=== PATIENT | female | born 1995 | race Caucasian/White ===

== ENCOUNTER → 2017-03-01 | Outpatient (CLI) | payer BC, MEDICAID | LOC: M RAD 11:15 | DX: O26.843 Uterine size-date discrepancy, third trimester (principal); Z3A.33 33 weeks gestation of pregnancy | CPT/HCPCS: 76820 ==

== ENCOUNTER → 2017-03-14 | Outpatient (REF) | payer BC | LOC: M LAB REF 17:18 | DX: Z34.83 Encounter for supervision of other normal pregnancy, third trimester (principal) | CPT/HCPCS: 87081 ==

== ENCOUNTER 2017-03-17 12:26 | Emergency (ER) | payer BC, MEDICAID | END 2017-03-17 15:58 | disposition home or self-care (01) | LOC: M ED 12:26 | DX: R07.89 Other chest pain (principal); J45.909 Unspecified asthma, uncomplicated; Z86.14 Personal history of Methicillin resistant Staphylococcus aureus infection | CPT/HCPCS: 93005 ==

== ENCOUNTER 2017-04-06 07:50 | Inpatient (IN) | payer MEDICAID ==
[2017-04-06] MEDS ORDERED: LR 1,000 ML IV (08:55)
[2017-04-06] MEDS ORDERED: LACTATED RINGER'S 1000 ML IV (08:55)
[2017-04-06] MEDS: PRENATAL VITAMINS CHEWABLE TABLET PO (09:00)
[2017-04-06] MEDS ORDERED: NS 1,000 ML IV (09:30)
[2017-04-06 09:41] LABS: HEMATOCRIT 42.2 % (36.0-47.0); HEMOGLOBIN 14.3 g/dl (12.0-16.0); MEAN CORPUSCULAR HEMOGLOBIN 31.1 pg (27.0-33.0); MEAN CORPUSCULAR HGB CONC 33.9 g/dl (32.0-36.5); MEAN CORPUSCULAR VOLUME 91.7 fl (80.0-96.0); PLATELET COUNT, AUTOMATED 318 10^3/uL (150-450); RED CELL DISTRIBUTION WIDTH 12.6 % (11.5-14.5); WHITE BLOOD COUNT 12.8 10^3/uL (4.0-10.0)
[2017-04-06] MEDS ORDERED: D5W 1,000 ML IV (10:30)
[2017-04-06] MEDS: BICITRA 30ML SOLN UDC PO (11:04)
[2017-04-06] MEDS ORDERED: METOCLOPRAMIDE INJ 10MG/2ML VIAL (J2765) IV (11:15)
[2017-04-06] MEDS ORDERED: NALOXONE INJ 0.4 MG/1 ML VIAL (J2310) IV ×2 (11:15)
[2017-04-06] MEDS ORDERED: NALBUPHINE HCL 10 MG/ML AMP (J2300) IV (11:15)
[2017-04-06] MEDS ORDERED: ONDANSETRON 4MG/2ML VIAL (J2405) IV ×3 (11:15→13:45)
[2017-04-06 12:19] LABS: HBSAG L&D NEGATIVE (NEGATIVE)
[2017-04-06] MEDS: OXYTOCIN DRIP 30 UNITS in APPROPRIATE DILUENT 1 EA IV (13:06)
[2017-04-06] MEDS ORDERED: RHOGAM 300 MCG (1500 IU) INJ (J2790) IM (13:15)
[2017-04-06] MEDS ORDERED: PROMETHAZINE 25 MG TAB PO (13:15)
[2017-04-06] MEDS: KETOROLAC 30 MG/ML VIAL (J1885) IV ×2 (13:15→18:52)
[2017-04-06] MEDS ORDERED: MEASLES,MUMPS,RUBELLA VACCINE INJ (MMR-II) (90707) SC (13:15)
[2017-04-06] MEDS ORDERED: PERCOCET 5MG/325MG TAB PO (13:15)
[2017-04-06] MEDS ORDERED: fentaNYL 100 MCG/2 ML INJECTION (J3010) IV (13:45)
[2017-04-06 14:15] LABS: AMPHETAMINES URINE REFLEX NEGATIVE (NEGATIVE); BARBITURATES URINE REFLEX NEGATIVE (NEGATIVE); BENZODIAZEPINES URINE REFLEX NEGATIVE (NEGATIVE); COCAINE METABOLITE URINE REFLE NEGATIVE (NEGATIVE); METHADONE URINE REFLEX NEGATIVE (NEGATIVE); OPIATES URINE REFLEX NEGATIVE (NEGATIVE); PHENCYCLIDINE URINE REFLEX NEGATIVE (NEGATIVE)
[2017-04-06 14:17] LABS: CANNABINOIDS URINE REFLEX POSITIVE (NEGATIVE)
[2017-04-06] MEDS: DOCUSATE SODIUM 100 MG CAP PO (20:20)
[2017-04-06] MEDS: LR 1,000 ML IV ×2 (21:06→23:41)
[2017-04-07] MEDS: KETOROLAC 30 MG/ML VIAL (J1885) IV ×2 (01:35→07:31)
[2017-04-07] MEDS: LR 1,000 ML IV (04:10)
[2017-04-07 07:01] LABS: HEMATOCRIT 34.9 % (36.0-47.0); MEAN CORPUSCULAR HEMOGLOBIN 30.9 pg (27.0-33.0); MEAN CORPUSCULAR HGB CONC 33.2 g/dl (32.0-36.5); MEAN CORPUSCULAR VOLUME 92.8 fl (80.0-96.0); PLATELET COUNT, AUTOMATED 259 10^3/uL (150-450); RED BLOOD COUNT 3.76 10^6/uL (4.00-5.40); RED CELL DISTRIBUTION WIDTH 12.6 % (11.5-14.5)
[2017-04-07 07:15] LABS: HEMOGLOBIN 11.6 g/dl (12.0-16.0)
[2017-04-07] MEDS: PRENATAL VITAMINS CHEWABLE TABLET PO (08:54)
[2017-04-07] MEDS: DOCUSATE SODIUM 100 MG CAP PO ×2 (09:00→20:55)
[2017-04-07] MEDS: IBUPROFEN 800 MG TAB PO ×2 (15:15→23:15)
[2017-04-08] MEDS: PERCOCET 5MG/325MG TAB PO (01:06)
[2017-04-08] MEDS: IBUPROFEN 800 MG TAB PO (06:27)
[2017-04-08] MEDS: DOCUSATE SODIUM 100 MG CAP PO (09:07)
[2017-04-08] MEDS: PRENATAL VITAMINS CHEWABLE TABLET PO (09:07)
[2017-04-10 00:06] LABS: Cannabinoid Positive (.); GC Carboxy THC >300 ng/mL (Cutoff=10)
== END 2017-04-08 11:05 | disposition home or self-care (01) | DRG 540 ==
LOC: M LDI 07:50 → M OBS 14:46
PROVIDERS: Obstetrics & Gynecology
PROC: 10D00Z1 Extraction of Products of Conception, Low, Open Approach (ICD-10-PCS; principal; 2017-04-06 08:30)
DX: O34.211 Maternal care for low transverse scar from previous cesarean delivery (principal); Z68.43 Body mass index [BMI] 50.0-59.9, adult; E66.01 Morbid (severe) obesity due to excess calories; O99.214 Obesity complicating childbirth; Z37.0 Single live birth; Z3A.39 39 weeks gestation of pregnancy

== ENCOUNTER 2018-03-12 11:35 | Emergency (ER) | payer BC, MEDICAID ==
[~2018-03-12] VITALS: Ht 160 cm; Wt 131.8 kg
[~2018-03-12 11:35] MED LIST: COLA100C5 PO; IBUP80TA PO; OXYC1TAB23 PO; PRENTAB55 PO
[2018-03-12 12:29] LABS: INFLUENZA A AMPLIFICATION NEGATIVE (NEGATIVE); INFLUENZA B AMPLIFICATION NEGATIVE (NEGATIVE)
--- NOTE | 2018-03-12 13:17 | REP ---
Chest two views HISTORY: Cough Comparison: None The lungs are clear. The heart is normal in size. The pulmonary vasculature is normal in appearance. There are old compression fractures of several lower thoracic vertebral bodies. IMPRESSION: No acute disease. Electronically Signed by Jace Shirley MD 03/12/2018 01:09 P
[2018-03-12] MEDS ORDERED: PRED20TA PO (13:34)
[2018-03-12] MEDS ORDERED: AMOX875T PO (13:34)
[2018-03-12] MEDS ORDERED: PROAAER10 INH (13:34)
[2018-03-12 14:20] VITALS: BP 140/92
== END 2018-03-12 14:22 | disposition home or self-care (01) ==
LOC: M ED 11:35
DX: J45.901 Unspecified asthma with (acute) exacerbation (principal); J02.0 Streptococcal pharyngitis

== ENCOUNTER → 2018-05-09 | Outpatient (CLI) | payer OTHER, BC ==
[~2018-05-09] MED LIST changes: +AMOX875T PO; +PRED20TA PO; +PROAAER10 INH
--- NOTE | 2018-05-10 04:15 | REP ---
Clinical: Persistent asthma with acute exacerbation . Comparison: 03/12/2018 . Technique: PA and lateral. Findings: The mediastinum and cardiac silhouette are normal. The lung armas are clear and without acute consolidation, effusion, or pneumothorax. The skeletal structures are intact and normal. Impression: 1. No acute cardiopulmonary process. Electronically Signed by Roberto Carlos Muñoz MD 05/10/2018 04:06 A
== END ==
LOC: M RAD 14:42
PROVIDERS: ATTEND Family Medicine
DX: J45.41 Moderate persistent asthma with (acute) exacerbation (principal)

== ENCOUNTER 2018-05-29 03:19 | Inpatient (IN) | payer OTHER, BC ==
[~2018-05-29] VITALS: Ht 165.1 cm; Wt 123.7 kg
[2018-05-29] MEDS ORDERED: dexameTHASONE 20 MG/5 ML VIAL (J1100) IV ONE (03:45)
[2018-05-29] MEDS ORDERED: ALBUTEROL SULFATE 2.5 MG/0.5 ML INH NEB SOLN NEB ONE (03:45)
[2018-05-29] MEDS ORDERED: IPRATROPIUM 0.5MG/ALBUTEROL 2.5MG INH SOL UD 3ML (DUONEB)(J7620) NEB PRN ×2 (04:00→07:45)
[2018-05-29] MEDS ORDERED: ONDANSETRON 4MG/2ML VIAL (J2405) IV ONE (04:00)
[2018-05-29 04:14] LABS: ABG BASE EXCESS -3.8 (-2.0-2.0); ABG HCO3 21.4 MEQ/L (22.0-26.0); ABG PARTIAL PRESSURE CO2 39.5 mmHg (35.0-45.0); ABG PARTIAL PRESSURE O2 64.5 mmHg (75.0-100.0); ABG STANDARD HCO3 21.2 MEQ/L (22.0-26.0); ABG TOTAL CO2 22.6 MEQ/L (22.0-29.0); ABG pH (ARTERIAL) 7.352 UNITS (7.350-7.450)
[2018-05-29 04:24] LABS: BASO # 0.1 10^3/uL (0.0-0.2); BASO % 0.4 % (0.0-1.0); EOS # 0.5 10^3/uL (0.0-0.50); EOS % 2.9 % (0.0-3.0); HEMATOCRIT 45.5 % (36.0-47.0); HEMOGLOBIN 15.1 g/dl (12.0-15.5); LYMPH # 2.4 10^3/uL (1.5-6.5); LYMPH % 13.2 % (24.0-44.0); MEAN CORPUSCULAR HEMOGLOBIN 30.7 pg (27.0-33.0); MEAN CORPUSCULAR HGB CONC 33.2 g/dl (32.0-36.5); MEAN CORPUSCULAR VOLUME 92.5 fl (80.0-96.0); MONO # 0.7 10^3/uL (0.0-0.8); NEUTROPHILS # 14.3 10^3/uL (1.8-7.7); PLATELET COUNT, AUTOMATED 354 10^3/uL (150-450); RED BLOOD COUNT 4.92 10^6/uL (4.00-5.40); WHITE BLOOD COUNT 18.1 10^3/uL (4.0-10.0)
[2018-05-29 04:53] LABS: INFLUENZA A AMPLIFICATION NEGATIVE (NEGATIVE); INFLUENZA B AMPLIFICATION NEGATIVE (NEGATIVE)
[2018-05-29 05:04] LABS: BLOOD UREA NITROGEN 14 MG/DL (7-18); CALCIUM LEVEL 8.1 MG/DL (8.5-10.1); CARBON DIOXIDE LEVEL 27 MEQ/L (21-32); CHLORIDE LEVEL 106 MEQ/L (98-107); CREATININE FOR GFR 0.94 MG/DL (0.55-1.30); GLOMERULAR FILTRATION RATE > 60.0 (>60); GLUCOSE, FASTING 172 MG/DL (70-100); SODIUM LEVEL 138 MEQ/L (136-145)
[2018-05-29] MEDS: IPRATROPIUM 0.5MG/ALBUTEROL 2.5MG INH SOL UD 3ML (DUONEB)(J7620) NEB SCH ×6 (06:27→20:06)
[2018-05-29] MEDS ORDERED: PROAAER10 INH (07:59)
[2018-05-29] MEDS ORDERED: FLUT1INH2 INH (08:04)
[2018-05-29] MEDS ORDERED: QVAR40AE12 INH (08:04)
--- NOTE | 2018-05-29 08:06 | REP ---
Oral chest x-ray: Single view. History: Dyspnea and cough. Comparison chest x-ray: May 09, 2018. Findings: EKG monitoring electrodes overlie the chest. Lungs are well inflated and clear. The pleural angles are sharp. Heart size is normal. Pulmonary vasculature is not increased. No significant bony abnormality is seen. Impression: No active disease. Electronically Signed by Jose Carlos Parkinson MD 05/29/2018 07:58 A
[2018-05-29] MEDS ORDERED: ALB2.5NEB INH (08:10)
[2018-05-29 08:18] LABS: ALBUMIN 3.2 GM/DL (3.2-5.2); ALT/SGPT 25 U/L (12-78); BILIRUBIN,DIRECT 0.2 MG/DL (0.0-0.2); BILIRUBIN,TOTAL 0.5 MG/DL (0.2-1.0); C REACTIVE PROTEIN QUANTITATIV 3.25 MG/DL (0.00-0.30); TOTAL PROTEIN 6.6 GM/DL (6.4-8.2)
--- NOTE | 2018-05-29 08:27 | HPE ---
DATE OF ADMISSION: 05/29/2018 PRIMARY CARE PROVIDER: Keven Lyman at [facility]. CHIEF COMPLAINT: Shortness of breath. HISTORY OF PRESENT ILLNESS: The patient is a 22-year-old female who has a history of childhood asthma but has not been on any inhalers or rescue inhalers for the last 5 years who 1 month ago began noticing she had shortness of breath, approximately 2 months she started a new control (she cannot remember the name of this). Follows with Dr. Khan of [facility]. Shortly thereafter she began developing progressively worsening shortness of breath to the point that she established with a new primary care provider, who prescribed a rescue inhaler, short course of prednisone and nebulizers with albuterol. This did improve her symptoms on the day she was on the steroids but since the steroids stopped her symptoms returned immediately. She otherwise tells me that she denies any changes. No changes in soap. No changes in living environment. No new pets. She previously worked in a [employer], but otherwise works at the [employer]. She does have some sick contacts and tells me that everybody in her house has been sick with the flu recently and that she was tested. She otherwise tells me that she has been in her usual state of health but she has been feeling progressively worse to the point that she did see her primary care provider yesterday. SUBJECTIVE: She tells me that she is feeling a little bit better after being seen in the emergency room and receiving some treatments, but otherwise she does not feel back to normal. PAST MEDICAL HISTORY: 1. Obesity. 2. Childhood asthma. 3. Dysmenorrhea. HOME MEDICATIONS: - recently started on rescue albuterol - recently started on control, which she does not recall the name of ALLERGIES: No known drug allergies. SURGICAL HISTORY: She had section in 2015 and 2018. SOCIAL HISTORY: She lives with her spouse. She is accompanied by her two young children and her spouse. She is a [employer]. She denies any tobacco or alcohol use. She does admit to smoking marijuana but has not done it lately due to the shortness of breath, nothing laced with it or any new supplier. FAMILY HISTORY: Denies any history of respiratory illnesses. REVIEW OF SYSTEMS: Negative other than the history of present illness. She denies any rashes or joint pains. OBJECTIVE: VITAL SIGNS: Temperature 97.9, heart rate 108, respiratory rate 20, blood pressure 146/80, oxygen saturation 93% on 3 liters. GENERAL: She is a young, obese, female sitting up on a stretcher. She does not appear in acute distress. HEENT: She is speaking in complete sentences without accessory muscle use. I did not assess for elevation of central venous pressure. There is no cervical lymphadenopathy. She has moist mucous membranes. CARDIOVASCULAR: S1, S2. She is tachycardic. No additional heart sounds appreciated. RESPIRATORY: There is some end expiratory wheeze throughout. She is tight with poor air movement. ABDOMEN: Grossly obese. EXTREMITIES: No clubbing, cyanosis or edema. LABORATORY DATA: WBC 18.1, hemoglobin 15.1, platelet count 354. Chemistry panel: Sodium 138, potassium 4.0, chloride 106, bicarbonate 17, BUN 14, creatinine 0.9, lactic acid 1.0, TSH within normal limits. Initial blood gas showed a pH of 7.3, PCO2 of 39.5, and a PO2 of 64.5, this is while she was on 3 liters of oxygen. Influenza panel is negative. Blood culture was drawn and pending. She did have a chest x-ray, results of which are currently pending. ASSESSMENT AND PLAN: This is a 22-year-old female with shortness of breath and cough. 1. Shortness of breath and cough, unclear etiology. The patient does have a history of asthma and has previously improved with steroids. At this time, I will continue her with DuoNebs, standing and as needed, IV Solu-Medrol and monitor her closely. We will wean her oxygen as tolerated. I will check a urine toxicology, respiratory PCR panel. For the time being, I have a suspicion that it may be an adverse reaction from her new control medication. I will request records from Dr. Khan's office to assess what medication it is and evaluate it for this possibility. Should she fail to improve with these measures and her symptoms continue to progress, certainly would have concern for some other underlying pathology resulting in this and would consider a CT of the chest plus/minus pulmonary consultation for potential bronchoscopy. Given her young age and fairly rapid progression of her illness, it certainly is not typical of progressing asthma. 2. Deep vein thrombosis (DVT) prophylaxis. Sequentials and TEDs. DISPOSITION: She is admitted to the medical/surgical floor under my care.
[2018-05-29 08:29] LABS: ERYTHROCYTE SEDIMENTATION RATE 24 mm/hr (0-20)
[2018-05-29 09:10] VITALS: BP 128/78
[2018-05-29] MEDS: methylPREDNISolone INJ 125 MG/2 ML VIAL (J2930) IV SCH ×3 (10:01→20:50)
[2018-05-29] MEDS ORDERED: ISOVUE-370 76% 125ML VIAL (Q9967 PER ML) As Ordered ONE ×2 (15:17→15:35)
--- NOTE | 2018-05-29 16:26 | REP ---
CT pulmonary angiogram: With IV contrast. History: Hypoxia, tachycardia. Comparison studies: Comparison is made with today's chest x-ray. Contrast dose: 75 mL of Isovue [address] technique: Helical scanning is acquired and overlapping 1.5 mm and contiguous 3 mm axial images are reformatted. In addition, maximum intensity projection and multiplanar re-formation images are generated in sagittal and coronal imaging projections. CT pulmonary angiographic findings: There is good opacification of the pulmonary arterial tree. There is no CT evidence of pulmonary embolus. Thoracic aorta enhances homogeneously and it is normal in course and caliber. No dissection or aneurysm is seen. No pleural or pericardial effusion is noted. No hilar or mediastinal mass or adenopathy is observed. There are patchy areas of ground-glass opacification noted bilaterally in the lung apices and in the left lower lobe. These may be inflammatory infiltrates. No pulmonary nodule or mass lesion is observed. No bony destructive lesion is appreciated. Visualized upper abdominal structures are unremarkable. No bony destructive lesion is seen. Impression: No CT evidence of pulmonary embolism. Patchy areas of ground-glass pulmonary parenchymal opacity in the upper lobes bilaterally and in the left lower lobe. These may represent pneumonia. Electronically Signed by Jose Carlos Parkinson MD 05/30/2018 11:07 A
[2018-05-29] MEDS ORDERED: ACETAMINOPHEN TAB 650MG DOSE (2X325MG) PO PRN (16:30)
[2018-05-29 17:30] VITALS: BP 128/76
[2018-05-29 20:00] VITALS: BP 137/80
[2018-05-29] MEDS: cefTRIAXone SOD 1 GM in D5W MINI-BAG PLUS 50 ML IV SCH (20:14)
[2018-05-29] MEDS: AZITHROMYCIN INJ 500 MG, VIAL MATE ADAPTER 1 EACH in D5W 250 ML IV SCH (20:50)
--- NOTE | 2018-05-29 22:05 | ECGEPIP ---
Stationary ECG Study [facility] - ED Test Date: 2018-05-29 Pat Name: NELSY HUGHES Department: Room: [place] [address] Gender: F Ham Passer: katerina : 1995 Requested By: Bernard Staley Order Number: [id number] Reading MD: Bernard Anthony Measurements Intervals [place] Rate: 115 P: 81 MD: 133 QRS: 13 QRSD: 87 T: 48 QT: 294 QTc: 407 Interpretive Statements SINUS TACHYCARDIA SIMILAR TO 03/17/17 Electronically Signed On 05-29-2018 22:05:13 EDT by Bernard Anthony
[2018-05-30] MEDS: IPRATROPIUM 0.5MG/ALBUTEROL 2.5MG INH SOL UD 3ML (DUONEB)(J7620) NEB SCH ×4 (02:00→20:00)
[2018-05-30] MEDS: methylPREDNISolone INJ 125 MG/2 ML VIAL (J2930) IV SCH ×4 (02:57→20:58)
[2018-05-30 05:58] VITALS: BP 142/73
[2018-05-30] MEDS ORDERED: INFLUENZA QUADRIVALENT PF VACCINE 0.5ML SYRINGE (90686) IM ONE (09:00)
[2018-05-30 09:23] LABS: HEMATOCRIT 45.8 % (36.0-47.0); HEMOGLOBIN 15.5 g/dl (12.0-15.5); MEAN CORPUSCULAR HEMOGLOBIN 30.4 pg (27.0-33.0); MEAN CORPUSCULAR HGB CONC 33.8 g/dl (32.0-36.5); MEAN CORPUSCULAR VOLUME 89.8 fl (80.0-96.0); PLATELET COUNT, AUTOMATED 410 10^3/uL (150-450); WHITE BLOOD COUNT 23.6 10^3/uL (4.0-10.0)
[2018-05-30 09:42] LABS: BLOOD UREA NITROGEN 17 MG/DL (7-18); C REACTIVE PROTEIN QUANTITATIV 2.35 MG/DL (0.00-0.30); CALCIUM LEVEL 9.1 MG/DL (8.5-10.1); CARBON DIOXIDE LEVEL 23 MEQ/L (21-32); CHLORIDE LEVEL 106 MEQ/L (98-107); CREATININE FOR GFR 0.94 MG/DL (0.55-1.30); GLOMERULAR FILTRATION RATE > 60.0 (>60); GLUCOSE, FASTING 197 MG/DL (70-100); POTASSIUM SERUM 4.2 MEQ/L (3.5-5.1); SODIUM LEVEL 139 MEQ/L (136-145)
[2018-05-30 10:10] LABS: ERYTHROCYTE SEDIMENTATION RATE 22 mm/hr (0-20)
--- NOTE | 2018-05-30 10:45 | IPNPDOC ---
Date Seen The patient was seen on 05/30/18. Progress Note SUBJECTIVE: Patient is a 42-year-old female with shortness of breath and cough. Patient was seen and examined this morning she states to be feeling relatively neutral. Her symptoms hasn't worsened or significantly improved. She did notice last night that her cough progressed from clear sputum to yellow in color. She denies having any fevers chills night sweats. When questioning him regarding her control she has been on control since last May 2017 and within the last 2 months her control was changed to generic. She notices her symptoms started around the same time. She was evaluated by her primary care physician, Dr. Lyman at the [facility] who has been placing her on inhalers for her asthma. She states that she never took any controller medications in the past. She has noticed that she is using her rescue inhaler 4-6 times daily because of significant shortness of breath. She was changed to AirDuo on May 28 but she has yet to sampler pickup an inhaler. She has no other complaints at this time. OBJECTIVE PHYSICAL EXAMINATION: VITAL SIGNS: Please see below. GENERAL: Pleasant 22-year-old female sitting up in her bed does not appear in acute distress not using any accessory muscles to answer questions able to answer in complete sentences HEENT: Atraumatic normocephalic CARDIOVASCULAR: Regular rate and rhythm. No audible murmurs rubs or gallops RESPIRATORY: Diffuse expiratory wheeze ABDOMINAL: Morbidly obese abdomen soft nontender EXTREMITIES: No lower extremity edema or tenderness LABORATORY DATA, IMAGING STUDIES, MICROBIOLOGY: Please see below. DVT prophylaxis ordered?: Tetanus sequentials ASSESSMENT AND PLAN: : This is a 22-year-old female with shortness of breath and cough. PROBLEMS: Shortness of breath and cough, unclear etiology -Moderate persistent asthma with acute exacerbation? -history of asthma but has not been on any controller medications in the past -trigger: Recent control chanage when symptoms orrginally started. -Been off control for 24 hours. -Continue with oxygen maintain oxygen saturation above 90% we'll slowly try to wean her off -Continue with DuoNeb's scheduled and when necessary as well as IV steroids Solu-Medrol 60 mg every 6 hours for clinical improvement DVT prophylaxis -Sequentials and TEDs. VS, I&O, 24H, Fishbone Vital Signs/I&O Vital Signs Date Time Temp Pulse Resp B/P (MAP) Pulse Ox O2 Delivery O2 Flow Rate FiO2 05/30/18 08:00 4.0 05/30/18 05:58 97.9 92 18 142/73 (96) 92 05/29/18 08:46 Nasal Cannula I&O- Last 24 Hours up to 6 AM 05/30/18 06:00 Intake Total 1530 ml Balance 1530 ml Laboratory Data 24H LABS Laboratory Tests 2 05/30/18 08:46: Nucleated Red Blood Cells % (auto) 0.0, Erythrocyte Sedimentation Rate 22H, Anion Gap 10, Glomerular Filtration Rate > 60.0, Blood Urea Nitrogen 17, C reatinine 0.94, Sodium Level 139, Potassium Level 4.2, Chloride Level 106, Carbon Dioxide Level 23, Calcium Level 9.1, C-Reactive Protein, Quantitative 2.35H CBC/BMP Laboratory Tests 05/30/18 08:46 Red Blood Count 5.10, Mean Corpuscular Volume 89.8, Mean Corpuscular Hemoglobin 30.4, Mean Corpuscular Hemoglobin Concent 33.8, Red Cell Distribution Width 12.6, Calcium Level 9.1 Microbiology Microbiology 05/29/18 Blood Culture - Preliminary, Resulted No growth after 24 hours . All specim... 05/29/18 Blood Culture - Preliminary, Resulted No growth after 24 hours . All specim... 05/29/18 Respiratory Virus Panel (PCR) ([facility]) - Final, Complete GME ATTESTATION GME ATTESTATION My faculty preceptor for this patient encounter was physically present during the encounter and was fully available. All aspects of the patient interview, examination, medical decision making process, and medical care plan development were reviewed and approved by the faculty preceptor. The faculty preceptor is aware and concurs with the plan as stated in the body of this note and will attest to such by his/her cosignature. RANDALL CAMP DO May 30, 2018 10:45
[2018-05-30 14:00] VITALS: BP 135/69
[2018-05-30 18:02] VITALS: BP 135/69
[2018-05-30] MEDS: cefTRIAXone SOD 1 GM in D5W MINI-BAG PLUS 50 ML IV SCH (19:51)
[2018-05-30] MEDS: AZITHROMYCIN INJ 500 MG, VIAL MATE ADAPTER 1 EACH in D5W 250 ML IV SCH (20:58)
[2018-05-30 21:00] VITALS: BP 140/73
[2018-05-31] MEDS: IPRATROPIUM 0.5MG/ALBUTEROL 2.5MG INH SOL UD 3ML (DUONEB)(J7620) NEB SCH ×4 (01:36→18:09)
[2018-05-31] MEDS: methylPREDNISolone INJ 125 MG/2 ML VIAL (J2930) IV SCH ×4 (02:54→21:15)
[2018-05-31 06:01] VITALS: BP 134/77
[2018-05-31 07:09] LABS: HEMATOCRIT 45.7 % (36.0-47.0); HEMOGLOBIN 15.2 g/dl (12.0-15.5); MEAN CORPUSCULAR HEMOGLOBIN 30.4 pg (27.0-33.0); MEAN CORPUSCULAR HGB CONC 33.3 g/dl (32.0-36.5); MEAN CORPUSCULAR VOLUME 91.4 fl (80.0-96.0); PLATELET COUNT, AUTOMATED 390 10^3/uL (150-450); WHITE BLOOD COUNT 23.2 10^3/uL (4.0-10.0)
[2018-05-31 07:25] LABS: BLOOD UREA NITROGEN 20 MG/DL (7-18); CALCIUM LEVEL 8.6 MG/DL (8.5-10.1); CARBON DIOXIDE LEVEL 25 MEQ/L (21-32); CHLORIDE LEVEL 105 MEQ/L (98-107); CREATININE FOR GFR 0.93 MG/DL (0.55-1.30); GLOMERULAR FILTRATION RATE > 60.0 (>60); GLUCOSE, FASTING 149 MG/DL (70-100); SODIUM LEVEL 138 MEQ/L (136-145)
--- NOTE | 2018-05-31 13:15 | IPNPDOC ---
Date Seen The patient was seen on 05/31/18. Progress Note SUBJECTIVE: Patient is a 42-year-old female with shortness of breath and cough. Patient was seen and examined this morning. She states that she's feeling much better. She hasn't been using oxygen except only after she had a coughing spell. To wear the oxygen for a couple of minutes then take it off. She slept relatively well last night. She is tolerating her meals. She would like to ambulate the halls today and is open to a possible discharge in the a.m. She is feeling back to her normal self but not 100%. She has no other complaints at this time. Denies any shortness of breath trouble breathing nausea vomiting diarrhea constipation. OBJECTIVE PHYSICAL EXAMINATION: VITAL SIGNS: Please see below. GENERAL: Pleasant 22-year-old female sitting up in her bed does not appear in acute distress not using any accessory muscles to answer questions able to answer in complete sentences HEENT: Atraumatic normocephalic CARDIOVASCULAR: Regular rate and rhythm. No audible murmurs rubs or gallops RESPIRATORY: Clear to auscultate in the upper lung armas bilaterally bibasilar expiratory wheeze ABDOMINAL: Morbidly obese abdomen soft nontender EXTREMITIES: No lower extremity edema or tenderness LABORATORY DATA, IMAGING STUDIES, MICROBIOLOGY: Please see below. DVT prophylaxis ordered?: Tetanus sequentials ASSESSMENT AND PLAN: : This is a 22-year-old female with shortness of breath and cough. PROBLEMS: Shortness of breath and cough, unclear etiology -possible Moderate persistent asthma with acute exacerbation? -history of asthma but has not been on any controller medications in the past -trigger: Recent control chanage when symptoms originally started or allergies, she c/o puritic eyes, sinus fullness, and postnasal drip past month as well -Been off control for 24 hours. -Continue with oxygen maintain oxygen saturation above 90% we'll slowly try to wean her off -Continue with DuoNeb's scheduled and when necessary as well as IV steroids Solu-Medrol 60 mg every 6 hours for clinical improvement -Can consider upon discharge oral antihistamine for seasonal allergies DVT prophylaxis -Sequentials and TEDs. Disposition: Continue IV Solu-Medrol, encourage ambulation possible discharge in 24-48 hours VS, I&O, 24H, Fishbone Vital Signs/I&O Vital Signs Date Time Temp Pulse Resp B/P (MAP) Pulse Ox O2 Delivery O2 Flow Rate FiO2 05/31/18 06:01 97.9 76 18 134/77 (96) 93 6.0 35 05/29/18 08:46 Nasal Cannula I&O- Last 24 Hours up to 6 AM 05/31/18 06:00 Intake Total 1750 ml Balance 1750 ml Laboratory Data 24H LABS Laboratory Tests 2 05/31/18 06:51: Nucleated Red Blood Cells % (auto) 0.0, Anion Gap 8, Glomerular Filtration Rate > 60.0, Blood Urea Nitrogen 20H, Creatinine 0.93, Sodium Level 138, Potassium Level 4.0, Chloride Level 105, Carbon Dioxide Level 25, Calcium Level 8.6 CBC/BMP Laboratory Tests 05/31/18 06:51 Red Blood Count 5.00, Mean Corpuscular Volume 91.4, Mean Corpuscular Hemoglobin 30.4, Mean Corpuscular Hemoglobin Concent 33.3, Red Cell Distribution Width 12.9, Calcium Level 8.6 Microbiology Microbiology 05/29/18 Blood Culture - Preliminary, Resulted No Growth after 48 hours. All Specime... 05/29/18 Blood Culture - Preliminary, Resulted No Growth after 48 hours. All Specime... 05/29/18 Respiratory Virus Panel (PCR) ([facility]) - Final, Complete GME ATTESTATION GME ATTESTATION My faculty preceptor for this patient encounter was physically present during the encounter and was fully available. All aspects of the patient interview, examination, medical decision making process, and medical care plan development were reviewed and approved by the faculty preceptor. The faculty preceptor is aware and concurs with the plan as stated in the body of this note and will attest to such by his/her cosignature. RANDALL CAMP DO May 31, 2018 13:15
[2018-05-31 14:00] VITALS: BP 134/86
[2018-05-31 14:30] VITALS: BP 163/79
[2018-05-31 21:00] VITALS: BP 160/92
[2018-05-31] MEDS: cefTRIAXone SOD 1 GM in D5W MINI-BAG PLUS 50 ML IV SCH (21:14)
[2018-05-31] MEDS: AZITHROMYCIN INJ 500 MG, VIAL MATE ADAPTER 1 EACH in D5W 250 ML IV SCH (21:56)
[2018-06-01] MEDS: IPRATROPIUM 0.5MG/ALBUTEROL 2.5MG INH SOL UD 3ML (DUONEB)(J7620) NEB SCH ×2 (02:00→07:18)
[2018-06-01] MEDS: methylPREDNISolone INJ 125 MG/2 ML VIAL (J2930) IV SCH ×2 (04:30→10:11)
[2018-06-01 06:00] VITALS: BP 138/96
[2018-06-01 06:17] LABS: HEMATOCRIT 46.9 % (36.0-47.0); HEMOGLOBIN 15.3 g/dl (12.0-15.5); MEAN CORPUSCULAR HEMOGLOBIN 30.1 pg (27.0-33.0); MEAN CORPUSCULAR HGB CONC 32.6 g/dl (32.0-36.5); MEAN CORPUSCULAR VOLUME 92.1 fl (80.0-96.0); PLATELET COUNT, AUTOMATED 399 10^3/uL (150-450); RED BLOOD COUNT 5.09 10^6/uL (4.00-5.40); WHITE BLOOD COUNT 19.6 10^3/uL (4.0-10.0)
[2018-06-01 06:38] LABS: BLOOD UREA NITROGEN 18 MG/DL (7-18); CALCIUM LEVEL 8.7 MG/DL (8.5-10.1); CARBON DIOXIDE LEVEL 26 MEQ/L (21-32); CHLORIDE LEVEL 106 MEQ/L (98-107); CREATININE FOR GFR 0.83 MG/DL (0.55-1.30); GLOMERULAR FILTRATION RATE > 60.0 (>60); GLUCOSE, FASTING 120 MG/DL (70-100); POTASSIUM SERUM 4.3 MEQ/L (3.5-5.1); SODIUM LEVEL 140 MEQ/L (136-145)
[2018-06-01] MEDS ORDERED: AZIT-12 PO (09:47)
[2018-06-01] MEDS ORDERED: PRED10TA2 PO (09:47)
[2018-06-01] MEDS ORDERED: CEFD1CAP8 PO (09:47)
--- NOTE | 2018-06-01 10:15 | DS.PDOC ---
Discharge Summary General Date of Admission May 29, 2018 at 07:56 Date of Discharge 06/01/2018 Primary Care Physician: BRANT FRANKS DO Discharge Summary PROCEDURES PERFORMED DURING STAY: None. ADMITTING DIAGNOSES: 1. Shortness of breath and cough, unclear etiology DISCHARGE DIAGNOSES: 1. Moderate persistent asthma with acute exacerbation 2. Community acquired pneumonia possibly multifocal COMPLICATIONS/CHIEF COMPLAINT: SOB. HISTORY OF PRESENT ILLNESS: The patient is a 22-year-old female who has a history of childhood asthma but has not been on any inhalers or rescue inhalers for the last 5 years who 1 month ago began noticing she had shortness of breath, approximately 2 months she started a new control (she cannot remember the name of this). Follows with Dr. Khan of [facility]. Shortly thereafter she began developing progressively worsening shortness of breath to the point that she established with a new primary care provider, who prescribed a rescue inhaler, s hort course of prednisone and nebulizers with albuterol. This did improve her symptoms on the day she was on the steroids but since the steroids stopped her symptoms returned immediately. She otherwise tells me that she denies any changes. No changes in soap. No changes in living environment. No new pets. She previously worked in a [employer], but otherwise works at the [employer]. She does have some sick contacts and tells me that everybody in her house has been sick with the flu recently and that she was tested. She otherwise tells me that she has been in her usual state of health but she has been feeling progressively worse to the point that she did see her primary care provider yesterday. HOSPITAL COURSE: Patient was admitted to the hospital service. She was started on IV antibiotics and IV Solu-Medrol. Imaging was done and was negative for pulmonary embolism. After 3 days of steroids and IV antibiotics the patient was clinically improving. She did state that she has a history of periodic eyes postnasal drip and sinus congestion the last 1 month. On the day of discharge the patient was able to ambulate around the halls without oxygen and shortness of breath. She was advised to stop taking her new control to berry picker her new inhaler and to possibly try a nondrowsy antihistamine. Because she has moderate persistent asthma with an acute exacerbation and shes never been on maintenance inhaler in the past we do recommend considering a pulmonary referral . She is to complete the antibiotics as prescribed for community-acquired pneumonia possibly multifocal in nature. He has no complaints and is agreeable to the plan stated to her today. DISCHARGE MEDICATIONS: Please see below. ALLERGIES: Please see below. PHYSICAL EXAMINATION ON DISCHARGE: VITAL SIGNS: Please see below. GENERAL: Pleasant 22-year-old female sitting up in her bed does not appear in acute distress not using any accessory muscles to answer questions able to answer in complete sentences HEENT: Atraumatic normocephalic CARDIOVASCULAR: Regular rate and rhythm. No audible murmurs rubs or gallops RESPIRATORY: Clear to auscultate laterally no audible wheezing rhonchi or rales. ABDOMINAL: Morbidly obese abdomen soft nontender EXTREMITIES: No lower extremity edema or tenderness LABORATORY DATA: Please see below. IMAGIN05/29/18 Chest x-ray Impression: No active disease. CT angios of the chest Impression: No CT evidence of pulmonary embolism. Patchy areas of ground-glass pulmonary parenchymal opacity in the upper lobes bilaterally and in the left lower lobe. These may represent pneumonia. PROGNOSIS: Fair ACTIVITY: As tolerated. DIET: Regular diet DISPOSITION: Home DISCHARGE INSTRUCTIONS: 1. Follow-up with PCP in 7 days 2. Complete antibiotics as prescribed 3. Stop taking new control and return to previously prescribed control( Sprintec) 4. Consider taking allergy medication 5. Complete prednisone taper as prescribed 6. The symptoms return or worsen please call PCP or return to the ER. DISCHARGE CONDITION: Stable. TIME SPENT ON DISCHARGE: Greater than 35 minutes. Vital Signs/I&Os Vital Signs Date Time Temp Pulse Resp B/P (MAP) Pulse Ox O2 Delivery O2 Flow Rate FiO2 06/01/18 06:00 97.0 69 16 138/96 (110) 93 05/31/18 06:01 6.0 35 05/29/18 08:46 Nasal Cannula I&O- Last 24 Hours up to 6 AM 06/01/18 06:00 Intake Total 1940 ml Balance 1940 ml Laboratory Data Labs 24H Laboratory Tests 2 06/01/18 05:23: Nucleated Red Blood Cells % (auto) 0.0, Anion Gap 8, Glomerular Filtration Rate > 60.0, Blood Urea Nitrogen 18, Creatinine 0.83, Sodium Level 140, Potassium Level 4.3, Chloride Level 106, Carbon Dioxide Level 26, Calcium Level 8.7 CBC/BMP Laboratory Tests 06/01/18 05:23 Red Blood Count 5.09, Mean Corpuscular Volume 92.1, Mean Corpuscular Hemoglobin 30.1, Mean Corpuscular Hemoglobin Concent 32.6, Red Cell Distribution Width 12.7, Calcium Level 8.7 Microbiology Microbiology 05/29/18 Blood Culture - Preliminary, Resulted No Growth after 72 hours. All specime... 05/29/18 Blood Culture - Preliminary, Resulted No Growth after 72 hours. All specime... 05/29/18 Respiratory Virus Panel (PCR) ([facility]) - Final, Complete Discharge Medications Scheduled (Fluticasone Propionate/SA 113-14 Mcg/Act) 1 Inh Inh, 1 PUFF INH BID, (Reported) TO START WHEN PICKED UP FROM PHARMACY Azithromycin (Azithromycin) 250 Mg Tab, 250 MG PO DAILY 2 the first day followed by 1 for days 2-5 Cefdinir (Cefdinir) 300 Mg Cap, 300 MG PO BID Prednisone (Prednisone) 10 Mg Tab, 10 MG PO TAPER Take 4 tabs daily x 3 days, then 3 tabs daily x 3 days, then 2 tabs daily x 3 days, then 1 tab daily x 3 days and stop Scheduled PRN Albuterol Sulfate (Proair Hfa) 108 Mcg/Act Aer, 2 PUFF INH Q4H PRN for SHORTNESS OF BREATH, (Reported) Albuterol Sulfate (Albuterol Sulfate) 2.5 Mg/0.5 Ml Neb, 2.5 MG INH Q4H PRN for SHORTNESS OF BREATH, (Reported) Allergies Coded Allergies: No Known Allergies (Unverified , 03/23/17) GME ATTESTATION GME ATTESTATION My faculty preceptor for this patient encounter was physically present during the encounter and was fully available. All aspects of the patient interview, examination, medical decision making process, and medical care plan development were reviewed and approved by the faculty preceptor. The faculty preceptor is aware and concurs with the plan as stated in the body of this note and will a ttest to such by his/her cosignature. RANDALL CAMP DO Jun 01, 2018 10:15
[2018-06-01] MEDS ORDERED: AZITHROMYCIN 250 MG TAB PO SCH (21:00)
== END 2018-06-01 12:15 | disposition home or self-care (01) | DRG 141 ==
LOC: M ED 03:19 → M ED INP 07:56 → M MS4PR 09:38 → M MSPAV 05-31 14:59
PROVIDERS: ADMIT Internal Medicine; ATTEND Internal Medicine
DX: J45.41 Moderate persistent asthma with (acute) exacerbation (principal); J18.9 Pneumonia, unspecified organism; E66.9 Obesity, unspecified

== ENCOUNTER 2018-12-27 21:26 | Inpatient (IN) | payer BC, OTHER ==
[~2018-12-27] VITALS: Ht 162.6 cm; Wt 128.5 kg
[~2018-12-27 21:26] MED LIST changes: +ALB2.5NEB INH; +AZIT-12 PO; +CEFD1CAP8 PO; +FLUT1INH2 INH; +PRED10TA2 PO; +QVAR40AE12 INH
[2018-12-27] MEDS ORDERED: dexameTHASONE 20 MG/5 ML VIAL (J1100) IV ONE (22:00)
[2018-12-27 22:18] LABS: ABG BASE EXCESS -2.8 (-2.0-2.0); ABG O2 SATURATION 96.1 % (95.0-99.0); ABG PARTIAL PRESSURE CO2 26.6 mmHg (35.0-45.0); ABG PARTIAL PRESSURE O2 73.5 mmHg (75.0-100.0); ABG STANDARD HCO3 22.1 MEQ/L (22.0-26.0); ABG TOTAL CO2 19.8 MEQ/L (22.0-29.0); ABG pH (ARTERIAL) 7.472 UNITS (7.350-7.450); BASO % 0.3 % (0.0-1.0); HEMATOCRIT 47.2 % (36.0-47.0); HEMOGLOBIN 15.6 g/dl (12.0-15.5); LYMPH # 0.8 10^3/uL (1.5-5.0); LYMPH % 5.3 % (24.0-44.0); MEAN CORPUSCULAR HEMOGLOBIN 30.2 pg (27.0-33.0); MEAN CORPUSCULAR HGB CONC 33.1 g/dl (32.0-36.5); MEAN CORPUSCULAR VOLUME 91.5 fl (80.0-96.0); MONO # 0.7 10^3/uL (0.0-0.8); MONO % 4.4 % (0.0-5.0); NEUTROPHILS # 13.8 10^3/uL (1.5-8.5); NEUTROPHILS % 89.6 % (36.0-66.0); PLATELET COUNT, AUTOMATED 350 10^3/uL (150-450); RED BLOOD COUNT 5.16 10^6/uL (4.00-5.40); WHITE BLOOD COUNT 15.4 10^3/uL (4.0-10.0)
[2018-12-27] MEDS: IPRATROPIUM 0.5MG/ALBUTEROL 2.5MG INH SOL UD 3ML (DUONEB)(J7620) NEB SCH ×3 (22:26→23:11)
[2018-12-27 22:38] LABS: BLOOD UREA NITROGEN 8 MG/DL (7-18); CARBON DIOXIDE LEVEL 24 MEQ/L (21-32); CHLORIDE LEVEL 105 MEQ/L (98-107); CREATININE FOR GFR 0.88 MG/DL (0.55-1.30); GLOMERULAR FILTRATION RATE > 60.0 (>60); GLUCOSE, FASTING 115 MG/DL (70-100); SODIUM LEVEL 138 MEQ/L (136-145)
[2018-12-27] MEDS ORDERED: ACETAMINOPHEN TAB 650MG DOSE (2X325MG) PO PRN (23:45)
[2018-12-28] MEDS: LEVALBUTEROL 1.25 MG/0.5 ML CONCENTRATE NEB NEB SCH ×3 (00:14→07:26)
[2018-12-28 03:03] LABS: HCG, SERUM QUALITATIVE POSITIVE (NEGATIVE)
[2018-12-28 03:30] VITALS: BP 127/59
[2018-12-28 03:30] LABS: HCG, SERUM QUANTITATIVE 52035 MIU/ML
[2018-12-28] MEDS: methylPREDNISolone INJ 40 MG/1 ML VIAL (J2920) IV SCH ×2 (04:24→10:32)
--- NOTE | 2018-12-28 07:34 | HPE ---
DATE OF ADMISSION: 12/27/2018 PRIMARY CARE PHYSICIAN: Dr. Keven Lyman CHIEF COMPLAINT: Shortness of breath and wheezing for two days. HISTORY OF PRESENT ILLNESS: This is a 23-year-old female with history of asthma who presents to the emergency room with two day history of worsening shortness of breath and wheezing at home, worsens when she takes a hot shower or carries heavy things and walks far. This has been worsened after exposure to her two and three year old children at home and boyfriend who all have upper respiratory infections with runny noses, coughing, cold. The patient denies any fever or chills. She felt lightheaded due to significant wheezing at home and has been using her nebulizer albuterol every hour, consuming the entire box without improvement. She was seen by her primary care physician two weeks ago with no changes in her rescue inhalers and had not been placed on maintenance therapy for asthma. The patient does have cats and carpets at home. She says she vacuums and shampoos her carpets and that her cats have been there for several years. She has been having nightly symptoms for the past two weeks with two to three episodes during the day when she is wheezing and short of breath. Despite nebulizer treatments in the emergency room (ER), the patient had persistent wheezing prompting inpatient admission. She remains tachycardic, ventricular rate of 129 to 140 and tachypneic with respiratory rate 22. Chest x-ray is negative for any acute infectious process. The patient remained 94-98% on room air saturation. She did not have any conversational dyspnea. She was admitted to the medical-surgical floor. PAST MEDICAL HISTORY: Asthma. Morbid obesity, body mass index (BMI) 49.1). Dysmenorrhea. PAST SURGICAL HISTORY: Two sections. ALLERGIES: No known drug allergies. SOCIAL HISTORY: No tobacco use or alcohol. 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 Lives with her boyfriend and two children ages 2 and 3. She is currently a full code. FAMILY HISTORY: Mother age 40, no medical problems. Father age 40, no medical problems. One sister age 20 and a half brother who is 11 years old. REVIEW OF SYSTEMS: Per history of present illness (HPI). The patient has been having morning sickness, has had decreased in appetite, especially in the morning, without any weight loss. Denies any diarrhea, fever, chills, changes in her vision, ear pain, sore throat. Complains of some nasal congestion, sinus tenderness. Denies any chest pain, pressure or tightness, lightheadedness or dizziness. No abdominal pain, constipation, diarrhea. No anxiety or depression. All other systems are negative. HOME MEDICATIONS: Albuterol as needed. vitamin. PHYSICAL EXAMINATION: Temperature 99.4, pulse 136 sinus rhythm, respiratory rate 18, blood pressure 145/73, 94% on room air. Generally, the patient is awake, alert and oriented to person, place and time. Answering questions appropriately. She has no conversational dyspnea. No cyanosis. No pallor. Anicteric. No jaundice. Face is symmetric. Dry mucous membranes. No cervical lymphadenopathy or thyromegaly. Lungs: Diminished bilaterally with bilateral wheezing. Heart: S1, S2. Sinus tachycardia. No murmurs, rubs or gallops. Abdomen: Obese. Soft. Nontender. Nondistended. Positive bowel sounds. Extremities: No pitting edema. LABORATORY DATA: White count 15.4, hemoglobin 15, hematocrit 47, platelet count 350. Sodium 138, potassium 4, chloride 105, bicarbonate 24, BUN 8, creatinine 0.88, glucose 115, calcium 9. ABG: pH 7.47, pCO2 26, pO2 73, bicarb 19. Respiratory panel is pending. IMAGING STUDIES: Chest x-ray - no official report. ASSESSMENT AND PLAN: This is a 23-year-old female with childhood asthma and obesity who presents to the emergency room with complaints of worsening shortness of breath and wheezing for the past two days, but has been unwell for the past two weeks with daily symptoms of asthma and two to three times nightly symptoms, only on inhaled albuterol as needed. The patient is admitted for asthma exacerbation. IMPRESSION: 1. Asthma exacerbation. Currently on IV Solu-Medrol 40 every 6 hours. Due to severe tachycardia, the patient will be given Xopenex 1.25 mg every 4 hours. She does not appear to be hypoxic and not requiring supplemental oxygen at this time. Does not have significant respiratory distress and has no conversational dyspnea. She is also started on inhaled steroids as well as Singulair for now. 2. Gravid uterus. The patient has positive test with first visit in two weeks. Start on vitamin and folic acid. 3. Hyperemesis gravidarum. As needed Zofran. 4. Deep vein thrombosis (DVT) prophylaxis with compression stockings.
--- NOTE | 2018-12-28 07:53 | REP ---
Clinical: Dyspnea . Comparison: 05/29/2018 . Findings: The mediastinum and cardiac silhouette are stable and within normal limits for portable technique. The lung armas are clear without acute consolidation, effusion, or pneumothorax. Skeletal structures are intact. Impression: No acute cardiopulmonary process appreciated. Electronically Signed by Roberto Carlos Muñoz MD 12/28/2018 07:45 A
[2018-12-28 08:00] VITALS: BP 134/67
[2018-12-28] MEDS ORDERED: FLUTICASONE HFA 110 MCG 12 GM INHALER (FLOVENT) INH SCH (08:00)
[2018-12-28] MEDS ORDERED: PRENATAL VITAMINS CHEWABLE TABLET PO SCH (09:00)
[2018-12-28] MEDS ORDERED: MONTELUKAST 10 MG TAB PO SCH (09:00)
[2018-12-28] MEDS ORDERED: PROAAER10 INH (09:16)
[2018-12-28] MEDS ORDERED: PRED20TA PO (09:16)
[2018-12-28] MEDS ORDERED: ALB2.5NEB INH (09:16)
--- NOTE | 2018-12-28 10:19 | DS.PDOC ---
Discharge Summary General Date of Admission Dec 27, 2018 at 23:42 Date of Discharge 12/28/2018 Primary Care Physician: BRANT FRANKS DO Attending Physician: SHAHID MCKEON MD Discharge Summary PROCEDURES PERFORMED DURING STAY: None. ADMITTING DIAGNOSES: 1. Acute asthma exacerbation. 2. Gravid uterus 3. Hyperemesis gravidarum. DISCHARGE DIAGNOSES: 1. Acute asthma exacerbation. 2. Gravid uterus 3. Hyperemesis gravidarum. COMPLICATIONS/CHIEF COMPLAINT: Asthma Exacerbation. HISTORY OF PRESENT ILLNESS: 23-year-old female with history of asthma who presented to the emergency room with two day history of worsening shortness of breath and wheezing at home, worsens when she takes a hot shower or carries heavy things and walks far. This has been worsened after exposure to her two and three year old children at home and boyfriend who all have upper respiratory infections with runny noses, coughing, cold. The patient denies any fever or chills. She felt lightheaded due to significant wheezing at home and has been using her nebulizer albuterol every hour, consuming the entire box without improvement. She was seen by her PCP two weeks ago with no changes in her rescue inhalers and had not been placed on maintenance therapy for asthma. The patient does have cats and carpets at home. She says she vacuums and shampoos her carpets and that her cats have been there for several years. She has been having nightly symptoms for the past two weeks with two to three episodes during the day when she is wheezing and short of breath. Despite nebulizer treatments in the ED, the patient had persistent wheezing prompting inpatient admission. HOSPITAL COURSE: Patient was admitted to the medical surgical unit and started on IV Solu-Medrol. She was continued on nebulizers scheduled overnight. She was also started inhaled steroids with Singulair. The patient was also noted to be and was continued on her vitamin with folic acid. She also c omplained of hyperemesis related to and was given Zofran as needed for this. Over the course of the patient's admission, her breathing status improved and she states she was much less short of breath. She also noted improvement in her wheezing. She was switched to oral steroids for discharge and her home home inhalers and nebulizers were refilled. On the day of discharge, the patient was found to be stable and safe for discharge. DISCHARGE MEDICATIONS: Please see below. ALLERGIES: Please see below. PHYSICAL EXAMINATION ON DISCHARGE: VITAL SIGNS: Please see below. GENERAL: Alert, comfortable, in no acute distress HEENT: Normocephalic, atraumatic, PERRLA, EOMI, moist mucous membranes NECK: Supple, trachea midline, no lymphadenopathy CARDIOVASCULAR: Regular rate and rhythm, normal S1 and S2. No murmurs, rubs, or gallops RESPIRATORY: Diffuse inspiratory and expiratory wheezing throughout with good air entry and equal respiratory effort bilaterally ABDOMEN: Soft, nontender, nondistended, bowel sounds present EXTREMITIES: No cyanosis or edema. Pulses 2+/4 in bilateral upper and lower extremities SKIN: Mango, warm, dry NEUROLOGIC: Alert and oriented 3 to person, place and time. Cranial nerves 2-12 grossly intact. No focal deficits appreciated PSYCHIATRIC: Mood and affect appropriate LABORATORY DATA: Please see below. IMAGING: CXR 12/27/18: No acute cardiopulmonary process appreciated. PROGNOSIS: Good ACTIVITY: As tolerated. DIET: As tolerated DISCHARGE PLAN:. Home DISCHARGE INSTRUCTIONS: 1. Follow-up with your PCP in 7-10 days 2. Complete seven-day course of oral prednisone 3. If your symptoms return or your condition worsens, please call your PCP or return to the ED for further evaluation. ITEMS TO FOLLOWUP ON ON OUTPATIENT: 1. Acute asthma exacerbation, review asthma action plan 2. DISCHARGE CONDITION: Stable. I saw and evaluated the patient. I agree with the findings and plan of care as documented in the documenters note. I spent 45 minutes coordinating this patient's discharge. Vital Signs/I&Os Vital Signs Date Time Temp Pulse Resp B/P (MAP) Pulse Ox O2 Delivery O2 Flow Rate FiO2 12/28/18 08:00 97.9 117 19 134/67 (89) 94 Room Air Laboratory Data Labs 24H Laboratory Tests 2 12/27/18 22:07: Immature Granulocyte % (Auto) 0.4, Neutrophils (%) (Auto) 89.6H, Lymphocytes (%) (Auto) 5.3L, Monocytes (%) (Auto) 4.4, Eosinophils (%) (Auto) 0.0, Basophils (%) (Auto) 0.3, Neutrophils # (Auto) 13.8H, Lymphocytes # (Auto) 0.8L, Monocytes # (Auto) 0.7, Eosinophils # (Auto) 0.0, Basophils # (Auto) 0.0, Nucleated Red Blood Cells % (auto) 0.0, Blood Gas Bicarbonate Standard 22.1, Arterial Blood pH 7.472H, Arterial Blood Partial Pressure CO2 26.6L, Arterial Blood Partial Pressure O2 73.5L, Arterial Blood Total CO2 19.8L, Arterial Blood HCO3 19.0L, Arterial Blood Base Excess -2.8L, Arterial Blood Oxygen Saturation 96.1, Anion Gap 9, Glomerular Filtration Rate > 60.0, Calcium Level 9.0, Human Chorionic Go nadotropin, Qual POSITIVEA, Human Chorionic Gonadotropin, Quant [id number] CBC/BMP Laboratory Tests 12/27/18 22:07 Microbiology Microbiology 12/28/18 Respiratory Virus Panel (PCR) ([facility]) - Final, Complete Human Rhinovirus/Enterovirus Discharge Medications Scheduled Prednisone (Prednisone) 20 Mg Tablet, 60 MG PO DAILY Scheduled PRN Albuterol Sulfate (Proair Hfa) 108 Mcg/Act Aer, 2 PUFF INH Q4H PRN for SHORTNESS OF BREATH Albuterol Sulfate (Albuterol Sulfate) 2.5 Mg/0.5 Ml Neb, 2.5 MG INH Q4H PRN for SHORTNESS OF BREATH Allergies Coded Allergies: No Known Allergies (Unverified , 03/23/17) MIGUEL COTTON PGY-1 Dec 28, 2018 10:19 SHAHID MCKEON MD Dec 29, 2018 10:51
== END 2018-12-28 10:45 | disposition home or self-care (01) | DRG 566 ==
LOC: M ED 21:26 → M ED INP 23:42 → M PED 12-28 03:11
PROVIDERS: ADMIT General Practice; ATTEND Family Medicine
DX: O99.511 Diseases of the respiratory system complicating pregnancy, first trimester (principal); Z68.42 Body mass index [BMI] 45.0-49.9, adult; J45.901 Unspecified asthma with (acute) exacerbation; E66.01 Morbid (severe) obesity due to excess calories; O26.891 Other specified pregnancy related conditions, first trimester; Z3A.00 Weeks of gestation of pregnancy not specified; N94.6 Dysmenorrhea, unspecified; Z79.51 Long term (current) use of inhaled steroids; Z79.899 Other long term (current) drug therapy; O21.0 Mild hyperemesis gravidarum; O99.211 Obesity complicating pregnancy, first trimester

== ENCOUNTER → 2019-01-14 | Outpatient (CLI) | payer BC, OTHER ==
[2019-01-14 11:48] LABS: BASO % 0.3 % (0.0-1.0); EOS # 0.2 10^3/uL (0.0-0.5); EOS % 1.5 % (0.0-3.0); LYMPH # 2.1 10^3/uL (1.5-5.0); LYMPH % 17.4 % (24.0-44.0); MEAN CORPUSCULAR HEMOGLOBIN 30.3 pg (27.0-33.0); MEAN CORPUSCULAR HGB CONC 32.6 g/dl (32.0-36.5); MEAN CORPUSCULAR VOLUME 93.1 fl (80.0-96.0); MONO # 0.6 10^3/uL (0.0-0.8); MONO % 5.2 % (0.0-5.0); NEUTROPHILS % 75.2 % (36.0-66.0); PLATELET COUNT, AUTOMATED 322 10^3/uL (150-450); RED BLOOD COUNT 4.62 10^6/uL (4.00-5.40)
[2019-01-14 12:06] LABS: HEMOGLOBIN A1c 5.5 %
[2019-01-14 12:13] LABS: GLUCOSE CHALLENGE TEST 1 HOUR 87 MG/DL (LESS THAN 140)
[2019-01-14 12:34] LABS: RUBELLA IgG QUALITATIVE IMMUNE (IMMUNE)
[2019-01-14 13:02] LABS: HIV 1&2 SCREEN CENTAUR NEGATIVE (NEGATIVE)
[2019-01-14 14:00] LABS: CHLAMYDIA DNA AMPLIFICATION NEGATIVE (NEGATIVE); GC DNA AMPLIFICATION NEGATIVE (NEGATIVE)
== END ==
LOC: M LAB 10:59
PROVIDERS: ATTEND Advanced Practice Midwife
DX: Z3A.01 Less than 8 weeks gestation of pregnancy (principal); Z3A.00 Weeks of gestation of pregnancy not specified

== ENCOUNTER → 2023-03-02 | Outpatient (CLI) | payer OTHER ==
[~2023-03-02] MED LIST changes: -CEFD1CAP8 PO; +CEFD1CAP9 PO
[2023-03-02 14:12] LABS: HEMATOCRIT 38.5 % (36.0-47.0); HEMOGLOBIN 12.5 g/dl (12.0-15.5); MEAN CORPUSCULAR HEMOGLOBIN 31.3 pg (27.0-33.0); MEAN CORPUSCULAR HGB CONC 32.5 g/dl (32.0-36.5); MEAN CORPUSCULAR VOLUME 96.3 fl (80.0-96.0); PLATELET COUNT, AUTOMATED 354 10^3/uL (150-450); WHITE BLOOD COUNT 12.1 10^3/uL (4.0-10.0)
[2023-03-02 14:53] LABS: HIV 1&2 SCREEN NEGATIVE (NEGATIVE)
[2023-03-02 15:01] LABS: HEPATITIS C VIRUS ABY INDEX 0.06 INDEX (<0.8)
[2023-03-02 15:20] LABS: CHLAMYDIA DNA AMPLIFICATION NEGATIVE (NEGATIVE); GC DNA AMPLIFICATION NEGATIVE (NEGATIVE)
== END ==
LOC: M PLALAB 10:50
PROVIDERS: ATTEND Advanced Practice Midwife
DX: O34.211 Maternal care for low transverse scar from previous cesarean delivery (principal); Z3A.00 Weeks of gestation of pregnancy not specified

== ENCOUNTER → 2023-03-21 | Outpatient (CLI) | payer OTHER | LOC: M RAD 11:04 | PROVIDERS: ATTEND Advanced Practice Midwife | DX: O34.211 Maternal care for low transverse scar from previous cesarean delivery (principal); Z3A.23 23 weeks gestation of pregnancy ==

== ENCOUNTER → 2023-04-27 | Outpatient (CLI) | payer OTHER ==
[2023-04-27 15:54] LABS: HEMATOCRIT 40.1 % (36.0-47.0); HEMOGLOBIN 13.2 g/dl (12.0-15.5); MEAN CORPUSCULAR HGB CONC 32.9 g/dl (32.0-36.5); MEAN CORPUSCULAR VOLUME 97.3 fl (80.0-96.0); PLATELET COUNT, AUTOMATED 383 10^3/uL (150-450); RED BLOOD COUNT 4.12 10^6/uL (4.00-5.40); WHITE BLOOD COUNT 15.3 10^3/uL (4.0-10.0)
== END ==
LOC: M PLALAB 11:30
PROVIDERS: ATTEND Obstetrics & Gynecology
DX: O34.211 Maternal care for low transverse scar from previous cesarean delivery (principal); Z3A.00 Weeks of gestation of pregnancy not specified

== ENCOUNTER 2023-05-16 00:37 | Emergency (ER) | payer OTHER ==
[~2023-05-16] VITALS: Ht 160 cm; Wt 139.9 kg
[2023-05-16 00:38] VITALS: BP 136/72; TEMP 98; O2SAT 97
== END 2023-05-16 01:06 | disposition left against medical advice (07) ==
LOC: M ED 00:37
DX: Z53.21 Procedure and treatment not carried out due to patient leaving prior to being seen by health care provider (principal)

== ENCOUNTER → 2023-05-24 | Outpatient (CLI) | payer OTHER | LOC: M RAD 08:23 | PROVIDERS: ATTEND Obstetrics & Gynecology | DX: O26.843 Uterine size-date discrepancy, third trimester (principal) ==

== ENCOUNTER → 2023-06-26 | Outpatient (REF) | payer OTHER | LOC: M SFHCWAGY 12:33 | PROVIDERS: ATTEND Obstetrics & Gynecology | DX: O34.211 Maternal care for low transverse scar from previous cesarean delivery (principal); Z36.85 Encounter for antenatal screening for Streptococcus B ==

== ENCOUNTER 2023-11-14 12:32 | Emergency (ER) | payer OTHER ==
[~2023-11-14] VITALS: Ht 162.6 cm; Wt 136.4 kg
[~2023-11-14 12:32] MED LIST changes: +ACET-907 PO; +ALBU0.63 INH; +ALBU2.5V10 INH; +ALBU8.5H INH; +BUDE180INH INH; +VENTAER INH
[2023-11-14 13:02] LABS: BASO # 0.1 10^3/uL (0.0-0.2); BASO % 0.5 % (0.0-1.0); EOS # 0.2 10^3/uL (0.0-0.5); EOS % 1.7 % (0.0-3.0); HEMATOCRIT 46.2 % (36.0-47.0); HEMOGLOBIN 15.5 g/dl (12.0-15.5); LYMPH # 1.5 10^3/uL (1.5-5.0); LYMPH % 12.9 % (24.0-44.0); MEAN CORPUSCULAR HEMOGLOBIN 30.1 pg (27.0-33.0); MEAN CORPUSCULAR HGB CONC 33.5 g/dl (32.0-36.5); MEAN CORPUSCULAR VOLUME 89.7 fl (80.0-96.0); MONO # 0.6 10^3/uL (0.0-0.8); MONO % 5.2 % (2.0-8.0); NEUTROPHILS # 9.3 10^3/uL (1.5-8.5); NEUTROPHILS % 79.4 % (36.0-66.0); PLATELET COUNT, AUTOMATED 364 10^3/uL (150-450); RED BLOOD COUNT 5.15 10^6/uL (4.00-5.40); WHITE BLOOD COUNT 11.7 10^3/uL (4.0-10.0)
[2023-11-14 13:24] LABS: ALBUMIN 3.8 G/DL (3.2-5.2); ALKALINE PHOSPHATASE 87 U/L (46-116); ALT/SGPT 15 U/L (7.0-40); AST/SGOT 11 U/L (<34); BILIRUBIN,DIRECT 0.2 MG/DL (<0.4); BILIRUBIN,TOTAL 0.7 MG/DL (0.3-1.2); BLOOD UREA NITROGEN 11 MG/DL (9-23); CALCIUM LEVEL 9.3 MG/DL (8.5-10.1); CARBON DIOXIDE LEVEL 26 MMOL/L (20-31); CHLORIDE LEVEL 107 MMOL/L (98-107); CREATININE FOR GFR 0.84 MG/DL (0.55-1.30); GLOMERULAR FILTRATION RATE > 60.0 (>60); GLUCOSE, FASTING 102 MG/DL (60-100); SODIUM LEVEL 139 MMOL/L (136-145); TOTAL PROTEIN 7.1 G/DL (5.7-8.2)
[2023-11-14 13:34] LABS: HCG, SERUM QUALITATIVE NEGATIVE (NEGATIVE)
[2023-11-14] MEDS: MAG SULF 1GM/100ML (MAG RUN) 1 GM in IV 1 EA IV SCH (13:55)
[2023-11-14] MEDS: IPRATROPIUM 0.02% SOLN 0.5MG 2.5ML NEB NEB ONE (14:09)
[2023-11-14] MEDS ORDERED: PRED20TA PO (14:58)
[2023-11-14] MEDS ORDERED: VENTAER INH (14:58)
[2023-11-14] MEDS ORDERED: IPRA0.00 INH (14:58)
[2023-11-14 15:00] VITALS: BP 128/72; TEMP 97.8; O2SAT 95
[2023-11-14] MEDS ORDERED: ALBU2.5V10 INH (22:25)
== END 2023-11-14 15:12 | disposition home or self-care (01) ==
LOC: M ED 12:32 → EDBD 12:32 → M ED 15:12
DX: U07.1 COVID-19 (principal); J45.901 Unspecified asthma with (acute) exacerbation; K21.9 Gastro-esophageal reflux disease without esophagitis; R51.9 Headache, unspecified; Z79.52 Long term (current) use of systemic steroids
CPT/HCPCS: 71045; 80048; 80076; 84703; 85025; 87486; 87581; 87633; 87798; 93005; 93041; 94640; 94760; 96365; 99285; J3475

== ENCOUNTER 2023-11-14 20:51 | Inpatient (IN) | payer OTHER ==
[~2023-11-14] VITALS: Ht 162.6 cm; Wt 140.0 kg
[~2023-11-14 20:51] MED LIST changes: +IPRA0.00 INH
[2023-11-14 21:27] LABS: VENOUS BASE EXCESS -2.1 (-2.0-2.0); VENOUS HCO3 23.7 MMOL/L (23.0-27.0); VENOUS O2 SATURATION 67.7 % (60.0-80.0); VENOUS PARTIAL PRESSURE O2 33.7 mmHg (30.0-50.0); VENOUS PH 7.349 UNITS (7.330-7.430); VENOUS STANDARD HCO3 21.9 MMOL/L
[2023-11-14] MEDS: ALBUTEROL SULFATE 2.5MG/0.5ML INH NEB SOLN INH ONE (21:49)
[2023-11-14] MEDS ORDERED: ALBU2.5V10 INH (22:25)
[2023-11-14] MEDS ORDERED: HOME MED LIST COMPLETE! XX SCH (22:30)
[2023-11-14] MEDS ORDERED: ACETAMINOPHEN TAB 650MG DOSE (2X325MG) PO PRN (23:05)
[2023-11-14] MEDS: guaiFENesin ER TABLET 600 MG TAB PO SCH (23:19)
[2023-11-14] MEDS: NS 1,000 ML IV SCH (23:20)
[2023-11-14] MEDS: BUDESONIDE 0.5 MG/2 ML INHALATION SUSPENSION NEB ONE (23:20)
[2023-11-14] MEDS: methylPREDNISolone 125MG 2ML VIAL IV SCH (23:21)
[2023-11-14] MEDS ORDERED: ISOVUE-370 76% 100ML VIAL As Ordered ONE (23:24)
[2023-11-14] MEDS: ENOXAPARIN 40MG/0.4ML SYRINGE (J1650 PER 10MG) SC SCH (23:29)
[2023-11-14] MEDS: IPRATROPIUM 0.5MG/ALBUTEROL 2.5MG INH SOL UD 3ML (DUONEB) NEB SCH (23:34)
[2023-11-15] MEDS ORDERED: ALBUTEROL SULFATE 2.5MG/0.5ML INH NEB SOLN NEB PRN (01:00)
[2023-11-15] MEDS: REMDESIVIR 200 MG in NS 250 ML IV ONE (02:07)
[2023-11-15 06:38] LABS: HEMATOCRIT 43.6 % (36.0-47.0); HEMOGLOBIN 14.9 g/dl (12.0-15.5); MEAN CORPUSCULAR HEMOGLOBIN 30.2 pg (27.0-33.0); MEAN CORPUSCULAR HGB CONC 34.2 g/dl (32.0-36.5); MEAN CORPUSCULAR VOLUME 88.4 fl (80.0-96.0); PLATELET COUNT, AUTOMATED 369 10^3/uL (150-450); RED BLOOD COUNT 4.93 10^6/uL (4.00-5.40)
[2023-11-15 07:22] LABS: ALBUMIN 3.8 G/DL (3.2-5.2); ALKALINE PHOSPHATASE 83 U/L (46-116); ALT/SGPT 17 U/L (7.0-40); AST/SGOT 14 U/L (<34); BILIRUBIN,TOTAL 0.4 MG/DL (0.3-1.2); BLOOD UREA NITROGEN 16 MG/DL (9-23); CARBON DIOXIDE LEVEL 20 MMOL/L (20-31); CHLORIDE LEVEL 107 MMOL/L (98-107); CREATININE FOR GFR 0.72 MG/DL (0.55-1.30); GLOMERULAR FILTRATION RATE > 60.0 (>60); GLUCOSE, FASTING 156 MG/DL (60-100); MAGNESIUM LEVEL 2.2 MG/DL (1.8-2.4); POTASSIUM SERUM 4.3 MMOL/L (3.5-5.1); SODIUM LEVEL 137 MMOL/L (136-145)
[2023-11-15 11:09] LABS: PROCALCITONIN <0.04 ng/ml
[2023-11-16 01:23] VITALS: BP 140/68; TEMP 98.2; O2SAT 94
[2023-11-16 03:32] VITALS: O2SAT 91
[2023-11-16 04:00] VITALS: BP 117/58; TEMP 98.5; O2SAT 94
[2023-11-16 08:00] VITALS: BP 115/68; TEMP 97.6; O2SAT 94
[2023-11-16 08:27] VITALS: O2SAT 93
[2023-11-16 08:35] LABS: BASO # 0.1 10^3/uL (0.0-0.2); BASO % 0.2 % (0.0-1.0); HEMATOCRIT 45.6 % (36.0-47.0); HEMOGLOBIN 15.1 g/dl (12.0-15.5); LYMPH # 0.8 10^3/uL (1.5-5.0); LYMPH % 3.1 % (24.0-44.0); MEAN CORPUSCULAR HEMOGLOBIN 30.1 pg (27.0-33.0); MEAN CORPUSCULAR HGB CONC 33.1 g/dl (32.0-36.5); MEAN CORPUSCULAR VOLUME 90.8 fl (80.0-96.0); MONO # 0.3 10^3/uL (0.0-0.8); MONO % 1.1 % (2.0-8.0); NEUTROPHILS # 25.9 10^3/uL (1.5-8.5); NEUTROPHILS % 94.9 % (36.0-66.0); PLATELET COUNT, AUTOMATED 411 10^3/uL (150-450); RED BLOOD COUNT 5.02 10^6/uL (4.00-5.40); WHITE BLOOD COUNT 27.3 10^3/uL (4.0-10.0)
[2023-11-16] MEDS ORDERED: NIRM1TAB14 PO (08:35)
[2023-11-16] MEDS ORDERED: PRED10TA2 PO (08:35)
[2023-11-16] MEDS ORDERED: MUCI600T31 PO (08:35)
[2023-11-16] MEDS: REMDESIVIR 100 MG in NS 250 ML IV SCH (09:01)
[2023-11-16] MEDS: FLUZONE VACCINE TRIVALENT PF(2024-25) 0.5ML SYRINGE IM.IMMUN ONE (09:01)
[2023-11-16 09:04] LABS: BLOOD UREA NITROGEN 18 MG/DL (9-23); CALCIUM LEVEL 9.6 MG/DL (8.5-10.1); CARBON DIOXIDE LEVEL 25 MMOL/L (20-31); CHLORIDE LEVEL 107 MMOL/L (98-107); CREATININE FOR GFR 0.72 MG/DL (0.55-1.30); GLOMERULAR FILTRATION RATE > 60.0 (>60); GLUCOSE, FASTING 130 MG/DL (60-100); MAGNESIUM LEVEL 2.2 MG/DL (1.8-2.4); POTASSIUM SERUM 4.6 MMOL/L (3.5-5.1); SODIUM LEVEL 139 MMOL/L (136-145)
== END 2023-11-16 10:17 | disposition left against medical advice (07) | DRG 137 ==
LOC: M ED 20:51 → EDBD 20:51 → M ED INP 23:05 → M PCU 11-16 01:15
PROVIDERS: ADMIT Preventive Medicine Undersea and Hyperbaric Medicine; ATTEND Internal Medicine
DX: U07.1 COVID-19 (principal); Z68.41 Body mass index [BMI] 40.0-44.9, adult; E66.9 Obesity, unspecified; R09.02 Hypoxemia; E87.20 Acidosis, unspecified; J45.31 Mild persistent asthma with (acute) exacerbation; Z79.899 Other long term (current) drug therapy